=== PATIENT | female | born 1975 | race African-American/Black ===

== ENCOUNTER 2017-02-06 18:36 | Emergency (ER) | payer MEDICAID ==
[~2017-02-06] VITALS: Ht 175.3 cm; Wt 105.5 kg
[~2017-02-06 18:36] MED LIST: DAPA1TAB PO; EXENINJ SQ; FLUO-1 PO; HYDR-3533 PO; LEVEMIR SQ; LURA40 PO; LYRI100C PO; METF1000 PO; METH5 PO; OMEP40CA2 PO; PROP10TA6 PO; WARF-22 PO; ZANA4CAP PO
--- NOTE | 2017-02-06 18:44 | PD ---
HPI Chief Complaint: Numbness/Tingling Time Seen by Provider: 18:44 Travel History International Travel<30 days: No Contact w/Intl Traveler<30days: No Traveled to known affect area: No History of Present Illness HPI 41-year-old female with history of hypertension, diabetes, A. fib, on Coumadin, neuropathy, presents to emergency department for evaluation of left lower extremity pain. Patient states the pain is on the lateral aspect of her left distal lower extremity and then the dorsal aspect of her left foot is numb. She states that she can feel pressure but the sensation to touch on the left is different than the right. This was noticed yesterday. She states that she slept with her legs hanging over the side relative her bed and believes this may have caused injury. She is concerned she may have a DVT. She has had DVT of the past. She denies any recent illnesses, fever, chills. No chest tightness. No difficulty breathing. No other symptoms to report. PFSH Past Medical History Hx Anticoagulant Therapy: Yes Arthritis: Yes (OSTEO- HANDS) Asthma: No Atrial Fibrillation: Yes Autoimmune Disease: No Blood Disorders: No Anxiety: Yes Depression: Yes Heart Rhythm Problems: Yes Cancer: No Cardiac Catheterization: No Cardiovascular Problems: Yes High Cholesterol: Yes Chemotherapy: No Chest Pain: No Congestive Heart Failure: No COPD: No Cerebrovascular Accident: Yes (DENIES) Diabetes: Yes Diminished Hearing: No Deep Vein Thrombosis: Yes (BILAT LEGS) Endocrine: No GERD: Yes Glaucoma: No Genitourinary: No Headaches: Yes Hepatitis: No Hiatal Hernia: No Hypertension: Yes Immune Disorder: Yes Kidney Stones: No Musculoskeletal: Yes ("SPASMS IN LEGS") Neurologic: Yes Psychiatric: No Reproductive: No Respiratory: Yes Immunizations Current: Yes Migraines: Yes Myocardial Infarction: No Radiation Therapy: No Renal Failure: No Seizures: No Sickle Cell Disease: No Sleep Apnea: No Thyroid Disease: No Ulcer: No PNEUMOCCOCAL Vaccine (Year): 2 ?: Not LMP: 01/2017 : 3 Para: 2 Miscarriage: 1 Past Surgical History Abdominal Surgery: No AICD: No Appendectomy: No Arteriovenous Shunt: No Body Medical Devices: IUD Cardiac Surgery: Yes (SHOBHA FILTER PLACEMENT X 2) Cholecystectomy: No Coronary Artery Bypass Graft: No Ear Surgery: No Endocrine Surgery: No Eye Surgery: No Genitourinary Surgery: No Gynecologic Surgery: Yes (IUD REMOVED 01/2011) Insulin Pump: No Joint Replacement: No Oral Surgery: Yes (ORAL CA REMOVED/BONE MARROW) Pacemaker: No Thoracic Surgery: No Other Surgery: Yes (SHOBHA FILTER PLACEMENT X 2) Social History Alcohol Use: Yes (OCC) Tobacco Use: Yes (SOCIALLY) Substance Use: No Allergies-Medications (Allergen,Severity, Reaction): Coded Allergies: No Known Allergies (Verified , 02/06/17) Reported Meds & Prescriptions Reported Meds & Active Scripts Active Lortab (Hydrocodone-Acetaminophen) 5-325 Mg Tab 1-2 Tab PO Q6H PRN Warfarin 10 Mg Tab 10 Mg PO HS Reported Mirtazapine 7.5 Mg Tab 7.5 Mg PO HS Latuda (Lurasidone) 40 Mg Tab 40 Mg PO DAILY Omeprazole 40 Mg Cap 40 Mg PO HS Propranolol (Propranolol HCl) 10 Mg Tab 10 Mg PO Q12HR Tapazole (Methimazole) 5 Mg Tab 5 Mg PO HS Metformin (Metformin HCl) 1,000 Mg Tab 1,000 Mg PO BIDPC With meals Lyrica (Pregabalin) 100 Mg Cap 100 Mg PO TID Levemir Inj (Insulin Detemir) 1,000 unit/ 10 ML Vial 35 Units SQ HS Do not mix with any other Insulin. Bydureon Inj (Exenatide) 2 Mg Vial 2 Mg SQ Q7D Prozac (Fluoxetine HCl) 10 Mg Cap 7.5 Mg PO DAILY Review of Systems Except as stated in HPI: all other systems reviewed are Neg Physical Exam Narrative GENERAL: Well-nourished female patient, in no acute distress SKIN: Focused skin assessment warm/dry. HEAD: Atraumatic. Normocephalic. EYES: Pupils equal and round. No scleral icterus. No injection or drainage. ENT: No nasal bleeding or discharge. Mucous membranes pink and moist. NECK: Trachea midline. No JVD. CARDIOVASCULAR: Regular rate. No murmur appreciated. RESPIRATORY: No accessory muscle use. Clear to auscultation. Breath sounds equal bilaterally. GASTROINTESTINAL: Abdomen soft, non-tender, nondistended. Hepatic and splenic margins not palpable. MUSCULOSKELETAL: No obvious deformities. No clubbing. No cyanosis. No edema. Patient reports hyperesthesia along the lateral aspect of the left distal lower extremity and dulled sensation on the dorsal aspect of the left foot. There is no erythema or edema. Distal pulses are palpable. No hyperreflexia. Equal strength bilateral lower extremities. NEUROLOGICAL: Awake and alert. No obvious cranial nerve deficits. Motor grossly within normal limits. Normal speech. Data Data Last Documented VS Vital Signs Date Time Temp Pulse Resp B/P Pulse Ox O2 Delivery O2 Flow Rate FiO2 02/06/17 20:41 88 18 157/88 95 Room Air Orders Us Leg Venous Doppler (02/06/17 ) Iv Access Insert/Monitor (02/06/17 18:54) Complete Blood Count With Diff (02/06/17 18:54) Basic Metabolic Panel (Bmp) (02/06/17 18:54) Coag Profile (02/06/17 18:54) Labs Laboratory Tests Test 02/06/17 19:10 White Blood Count 7.8 TH/MM3 Red Blood Count 5.13 MIL/MM3 Hemoglobin 12.2 GM/DL Hematocrit 38.8 % Mean Corpuscular Volume 75.8 FL Mean Corpuscular Hemoglobin 23.8 PG Mean Corpuscular Hemoglobin 31.3 % Concent Red Cell Distribution Width 14.8 % Platelet Count 285 TH/MM3 Mean Platelet Volume 7.9 FL Neutrophils (%) (Auto) 42.2 % Lymphocytes (%) (Auto) 42.3 % Monocytes (%) (Auto) 6.4 % Eosinophils (%) (Auto) 8.9 % Basophils (%) (Auto) 0.2 % Neutrophils # (Auto) 3.3 TH/MM3 Lymphocytes # (Auto) 3.3 TH/MM3 Monocytes # (Auto) 0.5 TH/MM3 Eosinophils # (Auto) 0.7 TH/MM3 Basophils # (Auto) 0.0 TH/MM3 CBC Comment AUTO DIFF Differential Comment AUTO DIFF CONFIRMED Platelet Estimate NORMAL Platelet Morphology Comment NORMAL Prothrombin Time 21.0 SEC Prothromb Time International 1.8 RATIO Ratio Activated Partial 30.1 SEC Thromboplast Time Sodium Level 138 MEQ/L Potassium Level 4.1 MEQ/L Chloride Level 105 MEQ/L Carbon Dioxide Level 26.5 MEQ/L Anion Gap 7 MEQ/L Blood Urea Nitrogen 10 MG/DL Creatinine 0.67 MG/DL Estimat Glomerular Filtration 116 ML/MIN Rate Random Glucose 195 MG/DL Calcium Level 8.2 MG/DL [facility] Medical Decision Making Medical Screen Exam Complete: Yes Emergency Medical Condition: Yes Medical Record Reviewed: Yes Differential Diagnosis Neuropathy versus myalgia versus hyperesthesia versus radiculopathy versus contusion versus DVT Narrative Course 41-year-old female presents to the emergency department for evaluation left lower extremity pain. Patient has isolated pain to the lateral aspect of the left distal lower extremity and reports altered sensation as numb on the dorsal aspect of the left foot. No erythema or edema. Ultrasound as needed for DVT. Lab work is without acute concern. INR is 1.8. I discussed the findings with the patient. I encouraged her to contact her primary care provider she is subtherapeutic currently on Coumadin. She states she did skip 2 doses in the last week. She'll be discharged home and agrees to return immediately with any acute worsening symptoms. Diagnosis Primary Impression: Pain in left lower leg Additional Impressions: Neuropathy Subtherapeutic anticoagulation Referrals: Primary Care Physician Patient Instructions: General Instructions, Peripheral Neuropathy (ED) Additional Instructions: Follow-up with your primary care provider Return immediately with any acute worsening symptoms Med/Other Pt SpecificInfo: No Change to Meds Disposition: 01 DISCHARGE HOME Condition: Stable Alice Nava Feb 06, 2017 18:44
[2017-02-06 18:51] VITALS: BP 150/72; PULSE 81; RESP 18; O2SAT 99
[2017-02-06 19:15] VITALS: BP 136/78; PULSE 72; RESP 18; O2SAT 99
[2017-02-06] MEDS ORDERED: MIRT1TAB PO (19:22)
[2017-02-06 19:25] LABS: AUTOMATED NEUTROPHIL # 3.3 TH/MM3 (1.8-7.7); BASOPHIL % 0.2 % (0.0-2.0); EOSINOPHIL # 0.7 TH/MM3 (0-0.4); EOSINOPHIL % 8.9 % (0.0-4.0); HEMATOCRIT 38.8 % (35.0-46.0); LYMPH % 42.3 % (9.0-44.0); LYMPHOCYTE # 3.3 TH/MM3 (1.0-4.8); MEAN CELL VOLUME 75.8 FL (80.0-100.0); MEAN CORPUSCULAR HEMOGLOBIN 23.8 PG (27.0-34.0); MEAN CORPUSCULAR HGB CONC 31.3 % (32.0-36.0); MONO % 6.4 % (0.0-8.0); NEUT % 42.2 % (16.0-70.0); PLATELET COUNT 285 TH/MM3 (150-450); RED BLOOD COUNT 5.13 MIL/MM3 (4.00-5.30); RED CELL DISTRIBUTION WIDTH 14.8 % (11.6-17.2); WHITE BLOOD COUNT 7.8 TH/MM3 (4.0-11.0)
[2017-02-06 19:27] LABS: HEMO FLAGS AUTO DIFF
[2017-02-06 19:47] LABS: APTT (PATIENT) 30.1 SEC (24.3-30.1); INTERNATIONAL NORMALIZED RATIO 1.8 RATIO
[2017-02-06 19:58] LABS: BICARBONATE 26.5 MEQ/L (21.0-32.0); POTASSIUM 4.1 MEQ/L (3.5-5.1)
[2017-02-06 20:24] LABS: PLATELET ESTIMATE SMEAR NORMAL (NORMAL); PLATELET MORPHOLOGY NORMAL (NORMAL); SCAN/DIFF AUTO DIFF CONFIRMED
[2017-02-06 20:41] VITALS: BP 157/88; PULSE 88; RESP 18; O2SAT 95
--- NOTE | 2017-02-06 21:56 | RADRPT ---
EXAM DATE/TIME: 02/06/2017 21:25 [facility] COMPARISON: No previous studies available for comparison. INDICATIONS : Left leg pain. MEDICAL HISTORY : Hypercholesterolemia. Osteoarthritis. Thyroid disease. Oral cancer. Migraines. Numbness. Afib. HT N. DVT. Legs spasms. GERD. Diabetes. Depression. Anxiety. Anticoagulant therapy. SURGICAL HISTORY : Oral cancer removed. Sharon filter placement x2. Gastrointestinal ostomy. IUD removed. ENCOUNTER: Subsequent ACUITY: 4 - 6 days PAIN SCORE: 7/10 LOCATION: Left leg. TECHNIQUE: Venous ultrasound of the leg was performed from the inguinal ligament to the proximal calf. Real-kai e, color Doppler and spectral tracing, compression and augmentation techniques were used. FINDINGS: There is normal compressibility of the deep venous system from the inguinal region to the proximal ca lf. No echogenic clot is seen in the lumen of the common femoral, femoral, popliteal, and posterior tibial veins. There is a normal response of the venous system to proximal and distal augmentation an d respiration. CONCLUSION: Normal examination. Tobin Etienne MD on February 06, 2017 at 21:54 Board Certified Radiologist. This report was verified electronically.
[2017-02-06 22:14] VITALS: BP 124/74
== END 2017-02-06 22:33 | disposition home or self-care (01) ==
LOC: NEPE 18:36
DX: M79.662 Pain in left lower leg (principal); E11.42 Type 2 diabetes mellitus with diabetic polyneuropathy; Z79.4 Long term (current) use of insulin; Z79.84 Long term (current) use of oral hypoglycemic drugs
CPT/HCPCS: 80048; 85025; 85610; 85730; 93971

== ENCOUNTER 2017-07-29 13:23 | Emergency (ER) | payer MEDICAID ==
[~2017-07-29] VITALS: Ht 177.8 cm; Wt 107.0 kg
[~2017-07-29 13:23] MED LIST changes: -DAPA1TAB PO; +MIRT1TAB PO; -ZANA4CAP PO
[2017-07-29 13:26] VITALS: BP 140/78; PULSE 69; RESP 15; TEMP 98.4; O2SAT 95
[2017-07-29] MEDS ORDERED: TIZA4CAP3 PO (14:48)
[2017-07-29] MEDS ORDERED: SIMV40TA PO (14:49)
[2017-07-29] MEDS ORDERED: RANI150T PO (14:49)
[2017-07-29 14:50] VITALS: BP 132/76; PULSE 70; RESP 16; O2SAT 100
--- NOTE | 2017-07-29 15:13 | PD ---
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 Is also complaining of left arm pain as well. Patient has been seen by Dr. Montoya for subtherapeutic anticoagulation the past. Patient is also on Lyrica for her lower extremity neuropathy. She denies shortness of breath or cough. She states her pain is worse with ambulation and has worsened over the last several days. Patient states that her new job at [employer] may be causing some of her discomfort. She states a history of her leg "going out from under her" 3 weeks ago but she did not have pain at that time. She denies specific injury. She denies changes in her bowels or bladder. She denies dysuria or vaginal discharge. Pain is currently 8 out of 10. Patient states she has been taking her Coumadin as prescribed. Patient has no known drug allergies PFSH Past Medical History Hx Anticoagulant Therapy: Yes Arthritis: Yes (OSTEO- HANDS) Asthma: No Atrial Fibrillation: Yes Autoimmune Disease: No Blood Disorders: Yes Bipolar Disorder: Yes Anxiety: Yes Depression: Yes Heart Rhythm Problems: Yes Cancer: Yes (BONE CANCER -ORAL) Cardiac Catheterization: No Cardiovascular Problems: Yes High Cholesterol: Yes Chemotherapy: No Chest Pain: No Congestive Heart Failure: No COPD: No Cerebrovascular Accident: Yes (DENIES) Diabetes: Yes Patient Takes Glucophage: No Diminished Hearing: No Deep Vein Thrombosis: Yes (BILAT LEGS) Endocrine: No GERD: Yes Glaucoma: No Genitourinary: No Headaches: Yes Hepatitis: No Hiatal Hernia: No Hypertension: Yes Immune Disorder: Yes Kidney Stones: No Musculoskeletal: Yes ("SPASMS IN LEGS") Neurologic: Yes Psychiatric: No Reproductive: No Respiratory: Yes Immunizations Current: Yes Migraines: Yes Myocardial Infarction: No Radiation Therapy: No Renal Failure: No Seizures: No Sickle Cell Disease: No Sleep Apnea: No Thyroid Disease: Yes Ulcer: No Influenza Vaccination: No PNEUMOCCOCAL Vaccine (Year): 2 ?: Unknown : 3 Para: 2 Miscarriage: 1 Past Surgical History Abdominal Surgery: No AICD: No Appendectomy: No Arteriovenous Shunt: No Body Medical Devices: IUD Cardiac Surgery: Yes (SHOBHA FILTER PLACEMENT X 2) Cholecystectomy: No Coronary Artery Bypass Graft: No Ear Surgery: No Endocrine Surgery: No Eye Surgery: No Genitourinary Surgery: No Gynecologic Surgery: Yes (IUD REMOVED 01/2011) Insulin Pump: No Joint Replacement: No Oral Surgery: Yes (ORAL CA REMOVED/BONE MARROW) Pacemaker: No Thoracic Surgery: No Other Surgery: Yes (SHOBHA FILTER PLACEMENT X 2) Social History Alcohol Use: Yes (OCC) Tobacco Use: Yes (SOCIALLY) Substance Use: No Allergies-Medications (Allergen,Severity, Reaction): Coded Allergies: No Known Allergies (Verified , 07/29/17) Reported Meds & Prescriptions Reported Meds & Active Scripts Active Tramadol (Tramadol HCl) 50 Mg Tab 50 Mg PO Q6H PRN Xarelto (Rivaroxaban) 20 Mg Tab 20 Mg PO DAILY 30 Days Lortab (Hydrocodone-Acetaminophen) 5-325 Mg Tab 1-2 Tab PO Q6H PRN Warfarin 10 Mg Tab 10 Mg PO HS Reported Ranitidine (Ranitidine HCl) 150 Mg Tab 150 Mg PO HS Simvastatin 40 Mg Tab 40 Mg PO HS Tizanidine (Tizanidine HCl) 4 Mg Cap 4 Mg PO TID Omeprazole 40 Mg Cap 40 Mg PO HS Propranolol (Propranolol HCl) 10 Mg Tab 10 Mg PO Q12HR Tapazole (Methimazole) 5 Mg Tab 5 Mg PO HS Metformin (Metformin HCl) 1,000 Mg Tab 1,000 Mg PO BIDPC With meals Lyrica (Pregabalin) 100 Mg Cap 100 Mg PO TID Levemir Inj (Insulin Detemir) 1,000 unit/ 10 ML Vial 35 Units SQ HS Do not mix with any other Insulin. Bydureon Inj (Exenatide) 2 Mg Vial 2 Mg SQ Q7D Review of Systems Except as stated in HPI: all other systems reviewed are Neg General / Constitutional: No: Fever Eyes: No: Visual changes HENT: No: Headaches Cardiovascular: No: Chest Pain or Discomfort Respiratory: No: Shortness of Breath Gastrointestinal: No: Abdominal Pain Genitourinary: No: Dysuria Musculoskeletal: Positive: Edema, Pain Skin: No Rash Neurologic: Positive: Paresthesia, No: Weakness Psychiatric: No: Depression Endocrine: No: Polydipsia Hematologic/Lymphatic: No: Easy Bruising Physical Exam Narrative GENERAL: Mild distress. SKIN: Warm and dry. Normal color. Normal turgor. No rash. HEAD: Atraumatic. Normocephalic. EYES: Pupils equal and round. No scleral icterus. No injection or drainage. ENT: No nasal bleeding or discharge. Mucous membranes pink and moist. Pharynx is clear. Airway is patent. NECK: Trachea midline. Supple and nontender. CARDIOVASCULAR: Regular rate and rhythm. No murmurs gallops or rubs. RESPIRATORY: No accessory muscle use. Clear to auscultation. Breath sounds equal bilaterally. GASTROINTESTINAL: Abdomen soft, non-tender, nondistended. Hepatic and splenic margins not palpable. MUSCULOSKELETAL: Extremities without clubbing, cyanosis, or edema. No obvious deformities. There is a question of swelling in the left lower extremity compared to the right all of the patient's body habitus makes this difficult to determine specifically. Patient has generalized discomfort with palpation to the whole left lower leg. Complains of tenderness with palpation of the soft tissues of the left upper arm. Both upper and lower extremities have normal neurovascular exam. Capillary refill is brisk. NEUROLOGICAL: Awake and alert. No obvious cranial nerve deficits. Motor grossly within normal limits. Five out of 5 muscle strength in the arms and legs. Normal speech. PSYCHIATRIC: Appropriate mood and affect; insight and judgment normal. Data Data Last Documented VS Vital Signs Date Time Temp Pulse Resp B/P (MAP) Pulse Ox O2 Delivery O2 Flow Rate FiO2 07/29/17 16:54 73 16 130/72 (91) 100 Nasal Cannula 2.00 07/29/17 13:26 98.4 Orders Orders Complete Blood Count With Diff (07/29/17 15:02) Comprehensive Metabolic Panel (07/29/17 15:02) Act Partial Throm Time (Ptt) (07/29/17 15:02) Prothrombin Time / Inr (Pt) (07/29/17 15:02) Magnesium (Mg) (07/29/17 15:02) Ckmb (Isoenzyme) Profile (07/29/17 15:02) Troponin I (07/29/17 15:02) Urinalysis - C+S If Indicated (07/29/17 15:02) Iv Access Insert/Monitor (07/29/17 15:02) Electrocardiogram (07/29/17 15:02) Ecg Monitoring (07/29/17 15:02) Oximetry (07/29/17 15:02) Oxygen Administration (07/29/17 15:02) Us Leg Venous Doppler (07/29/17 15:02) Cath For Specimen (07/29/17 15:02) Sodium Chloride 0.9% Flush (Ns Flush) (07/29/17 15:15) Us Arm Venous Doppler (07/29/17 15:02) Rivaroxaban (Xarelto) (07/29/17 17:30) Ed Discharge Order (07/29/17 17:33) Labs Laboratory Tests Test 07/29/17 15:00 07/29/17 16:40 White Blood Count 9.2 TH/MM3 Red Blood Count 5.39 MIL/MM3 Hemoglobin 13.0 GM/DL Hematocrit 41.1 % Mean Corpuscular Volume 76.1 FL Mean Corpuscular Hemoglobin 24.1 PG Mean Corpuscular Hemoglobin Concent 31.7 % Red Cell Distribution Width 15.5 % Platelet Count 291 TH/MM3 Mean Platelet Volume 7.9 FL Neutrophils (%) (Auto) 60.6 % Lymphocytes (%) (Auto) 30.7 % Monocytes (%) (Auto) 6.3 % Eosinophils (%) (Auto) 2.2 % Basophils (%) (Auto) 0.2 % Neutrophils # (Auto) 5.6 TH/MM3 Lymphocytes # (Auto) 2.8 TH/MM3 Monocytes # (Auto) 0.6 TH/MM3 Eosinophils # (Auto) 0.2 TH/MM3 Basophils # (Auto) 0.0 TH/MM3 CBC Comment DIFF FINAL Differential Comment Prothrombin Time 16.8 SEC Prothromb Time International Ratio 1.5 RATIO Activated Partial Thromboplast Time 26.6 SEC Blood Urea Nitrogen 10 MG/DL Creatinine 0.58 MG/DL Random Glucose 188 MG/DL Total Protein 7.3 GM/DL Albumin 3.1 GM/DL Calcium Level 8.8 MG/DL Magnesium Level 1.8 MG/DL Alkaline Phosphatase 129 U/L Aspartate Amino Transf (AST/SGOT) 11 U/L Alanine Aminotransferase (ALT/SGPT) 21 U/L Total Bilirubin 0.2 MG/DL Sodium Level 137 MEQ/L Potassium Level 3.7 MEQ/L Chloride Level 105 MEQ/L Carbon Dioxide Level 25.4 MEQ/L Anion Gap 7 MEQ/L Estimat Glomerular Filtration Rate 137 ML/MIN Total Creatine Kinase 65 U/L Troponin I LESS THAN 0.02 NG/ML Urine Color YELLOW Urine Turbidity CLEAR Urine pH 5.5 Urine Specific [place] 1.036 Urine Protein TRACE mg/dL Urine Glucose (UA) 1000 mg/dL Urine Ketones NEG mg/dL Urine Occult Blood NEG Urine Nitrite NEG Urine Bilirubin NEG Urine Urobilinogen LESS THAN 2.0 MG/DL Urine Leukocyte Esterase NEG Urine WBC LESS THAN 1 /hpf Urine Squamous Epithelial Cells 1 /hpf Urine Mucus FEW /lpf Microscopic Urinalysis Comment CULT NOT INDICATED MDM Medical Decision Making Medical Screen Exam Complete: Yes Emergency Medical Condition: Yes Medical Record Reviewed: Yes Differential Diagnosis Neuropathy pain. Recurrent DVT. Upper extremity DVT. Subtherapeutic anticoagulation. Left lower leg pain. Narrative Course Patient is medically stable at time of exam. Labs ordered including CBC, CMP, and coagulation studies. Ultrasound left lower extremity and left upper extremity ordered. Patient is discussed with Dr. Ellis. CBC shows no leukocytosis, hemoglobin 13.0, hematocrit 41.1, platelet count is 291. CMP shows no significant findings with a random glucose of 188, alkaline phosphatase 129, less than 0.02. Coagulation studies PT of 16.8, and INR 1.5. PTT is 26.6. Urinalysis is unremarkable except for glucose of 1000. Ultrasound shows no DVT in the left upper extremity, however the left lower extremity shows: Incomplete compression of the proximal femoral vein suspicious for partially occlusive thrombus. The rest of the things are patent per the radiologist. Patient is discussed with Dr. Ellis who recommends follow-up with Dr. Maldonado. Call was placed to Dr. Duggan office, and Dr. Combs who is on-call call back. The patient was discussed, and it was recommended the patient start Xaralto 20 mg daily. First dose of Xaralto was given. The patient is to stop her Coumadin. She was given a prescription for Xaralto 20 mg daily for the next 2 weeks. Patient is also given Ultram 50 mg one every 6 hours when necessary pain #20. Patient is to follow with her primary care physician in the next week. Diagnosis Primary Impression: Dvt femoral (deep venous thrombosis) Qualified Codes: I82.412 - Acute embolism and thrombosis of left femoral vein Additional Impressions: Pain in left lower leg Subtherapeutic anticoagulation Referrals: Primary Care Physician Patient Instructions: General Instructions Additional Instructions: Call was placed to Dr. Duggan office, and Dr. Combs who is on-call call back. The patient was discussed, and it was recommended the patient start Xaralto 20 mg daily. First dose of Xaralto was given. The patient is to stop her Coumadin. She was given a prescription for Xaralto 20 mg daily for the next 2 weeks. Patient is also given Ultram 50 mg one every 6 hours when necessary pain #20. Patient is to follow with her primary care physician in the next week. Med/Other Pt SpecificInfo: Prescription(s) given, Med Stopped Scripts Tramadol (Tramadol) 50 Mg Tab 50 MG PO Q6H Y for PAIN, #20 TAB 0 Refills Prov: Cooper Ellis MD 07/29/17 Rivaroxaban (Xarelto) 20 Mg Tab 20 MG PO DAILY for Blood Clot Prevention for 30 Days, #30 TAB 0 Refills Prov: Cooper Ellis MD 07/29/17 Disposition: 01 DISCHARGE HOME Condition: Stable Adan Burrows Jul 29, 2017 15:13
[2017-07-29] MEDS ORDERED: SODIUM CHLORIDE 0.9% FLUSH 10 ML FLUSH IVF PRN (15:15)
[2017-07-29 15:35] LABS: AUTOMATED NEUTROPHIL # 5.6 TH/MM3 (1.8-7.7); BASOPHIL % 0.2 % (0.0-2.0); EOSINOPHIL # 0.2 TH/MM3 (0-0.4); EOSINOPHIL % 2.2 % (0.0-4.0); HEMATOCRIT 41.1 % (35.0-46.0); HEMO FLAGS DIFF FINAL; LYMPH % 30.7 % (9.0-44.0); LYMPHOCYTE # 2.8 TH/MM3 (1.0-4.8); MEAN CELL VOLUME 76.1 FL (80.0-100.0); MEAN CORPUSCULAR HEMOGLOBIN 24.1 PG (27.0-34.0); MEAN CORPUSCULAR HGB CONC 31.7 % (32.0-36.0); MONO % 6.3 % (0.0-8.0); NEUT % 60.6 % (16.0-70.0); PLATELET COUNT 291 TH/MM3 (150-450); RED BLOOD COUNT 5.39 MIL/MM3 (4.00-5.30); RED CELL DISTRIBUTION WIDTH 15.5 % (11.6-17.2); WHITE BLOOD COUNT 9.2 TH/MM3 (4.0-11.0)
[2017-07-29 15:47] LABS: APTT (PATIENT) 26.6 SEC (24.3-30.1); INTERNATIONAL NORMALIZED RATIO 1.5 RATIO; PROTHROMBIN TIME - PATIENT 16.8 SEC (9.8-11.6)
[2017-07-29 16:03] VITALS: BP 130/72; PULSE 70; RESP 16; O2SAT 98
[2017-07-29 16:06] LABS: ANION GAP 7 MEQ/L (5-15); AST (GOT) 11 U/L (15-37); BICARBONATE 25.4 MEQ/L (21.0-32.0); BLOOD UREA NITROGEN 10 MG/DL (7-18); CHLORIDE 105 MEQ/L (98-107); GLOMERULAR FILTRATION RATE 137 ML/MIN (>89); MAGNESIUM 1.8 MG/DL (1.5-2.5); POTASSIUM 3.7 MEQ/L (3.5-5.1); SODIUM (NA) 137 MEQ/L (136-145)
[2017-07-29 16:07] LABS: ALT (GPT) 21 U/L (10-53)
[2017-07-29 16:11] LABS: ALKALINE PHOSPHATASE 129 U/L (45-117); TOTAL BILIRUBIN ADULT 0.2 MG/DL (0.2-1.0)
--- NOTE | 2017-07-29 16:13 | RADRPT ---
EXAM DATE/TIME: 07/29/2017 15:35 [facility] COMPARISON: US LEG LEFT VENOUS DOPPLER, February 06, 2017, 21:25. INDICATIONS : Left groin pain after filter placement. MEDICAL HISTORY : Hypercholesterolemia. Osteoarthritis. Thyroid disease. Oral cancer. Migraines.Numbness. Afib. HTN. DV T. Legs spasms. GERD. Diabetes. Depression. Anxiety. Anticoagulant therapy. SURGICAL HISTORY : Oral cancer removed. Gaines filter placement x2. Gastrointestinalostomy. IUD removed. ENCOUNTER: Subsequent ACUITY: 3 days PAIN SCORE: 5/10 LOCATION: Left leg. TECHNIQUE: Venous ultrasound of the leg was performed from the inguinal ligament to the proximal calf. Real-kai e, color Doppler and spectral tracing, compression and augmentation techniques were used. FINDINGS: There is only partial compressibility of the proximal femoral vein and profunda femoris. The remainin g vessels demonstrate normal compression. Normal blood flow is documented within the lower extremity vessels. The peroneal vein is not visualized. CONCLUSION: 1. Incomplete compression of the proximal femoral vein suspicious for partially occlusive thrombus. 2. Remaining veins of the left lower extremity are patent. Kg Aldrich MD on July 29, 2017 at 16:08 Board Certified Radiologist. This report was verified electronically.
[2017-07-29 16:18] LABS: CREATINE KINASE 65 U/L (26-192)
--- NOTE | 2017-07-29 16:18 | RADRPT ---
EXAM DATE/TIME: 07/29/2017 15:18 [facility] COMPARISON: No previous studies available for comparison. INDICATIONS : Left arm pain. MEDICAL HISTORY : Hypercholesterolemia. Osteoarthritis. Thyroid disease. Oral cancer. Migraines. Numbness. Afib. HTN. D VT. Legs spasms. GERD. Diabetes. Depression. Anxiety. Anticoagulant therapy. SURGICAL HISTORY : Oral cancer removed. Sharon filter placement x2. Gastrointestinalostomy. IUD removed. ENCOUNTER: Initial ACUITY: 3 days PAIN SCORE: 5/10 LOCATION: Left arm. FINDINGS: There is spontaneous flow documented in the brachial, basilic, cephalic, axillary, and subclavian vei ns. The vessels are compressible and augmentation response is documented. No filling defects are se en. The flow is phasic with respiration. Direction of flow in the jugular vein is caudal. CONCLUSION: No DVT is identified in the left upper extremity. Kg Aldrich MD on July 29, 2017 at 16:11 Board Certified Radiologist. This report was verified electronically.
[2017-07-29 16:54] VITALS: BP 130/72; PULSE 73; RESP 16; O2SAT 100
[2017-07-29 17:01] LABS: BLOOD, URINE NEG (NEG); COMMENT (UR) CULT NOT INDICATED; CULTURE IF INDICATED CULT NOT INDICATED; GLUCOSE,URINE 1000 mg/dL (NEG); KETONE, URINE NEG (NEG); MUCUS URINE FEW /lpf (OCC); NITRITE,URINE NEG (NEG); PH, URINE 5.5 (5.0-8.5); SQUAMOUS EPITHELIAL CELL URINE 1 /hpf (0-5); URINE COLOR YELLOW (YELLW/STRAW)
[2017-07-29] MEDS ORDERED: RIVAROXABAN 20 MG TAB PO ONE (17:30)
[2017-07-29] MEDS ORDERED: XARE20TA PO (17:33)
[2017-07-29] MEDS ORDERED: TRAM50TA PO (17:33)
[2017-07-29 18:50] VITALS: BP 134/68
--- NOTE | 2017-07-30 17:24 | EKG ---
Date Performed: 07/29/2017 Time Performed: 16:12:59 PTAGE: 41 years EKG: Sinus rhythm NONSPECIFIC T-WAVE ABNORMALITY BORDERLINE ECG INTERPRETATION BASED ON A DEFAULT AGE OF 40 YEARS PREVIOUS TRACING : 06/05/2016 21.36 Compared to prior tracing no significant change DOCTOR: Miya Joshi Interpretating Date/Time 07/30/2017 17:23:26
== END 2017-07-29 19:36 | disposition home or self-care (01) ==
LOC: NEPC 13:23
DX: I82.412 Acute embolism and thrombosis of left femoral vein (principal); R79.1 Abnormal coagulation profile; I48.91 Unspecified atrial fibrillation
CPT/HCPCS: 80053; 81001; 82550; 83735; 84484; 85025; 85610; 85730; 93005; 93971; 99285; P9612